=== PATIENT | male | born 1955 | race African-American/Black ===

== ENCOUNTER 2016-10-04 12:00 | Inpatient (IN) | payer MEDICARE ==
[~2016-10-04] VITALS: Ht 185.4 cm; Wt 167.8 kg
--- NOTE | ~2016-10-04 | PN ---
Unit #: [id number] #: [id number] Patient: BHARAT JESSICA [id number] [facility] [address] [place] [address] [id number] MR#: [id number] NAME: BHARAT JESSICA ROOM: [facility] Age: 61 Sex: M Admission Date: 10/04/2016 : 1955 Attending Physician: Arun Haque M.D. Admitting Physician: Arun Haque M.D. Primary Care Physician: Primary Care Physician Marium COYNE PROGRESS NOTES DATE 10/08/2016 DISCUSSION Bharat Jessica is a 61-year-old male seen on 10/08/2016. Patient interviewed. Chart reviewed. Obtained information from nursing staff. Patient was compliant, cooperative. Mood sad, dysphoric. Vital signs 98.3, 91, 182/103. Patient still feeling sad, depressed, anxious, withdrawn. Patient withdrawing from drugs but still isolative, guarded. Complete review of system unremarkable. MENTAL STATUS EXAMINATION General appearance, patient moderately obese, dressed casually. Attention span, concentration fair. Oriented in time, place and person. Mood and affect sad, dysphoric, flat. Speech monotone. Thought process concrete. Patient reported passive SI, withdrawn, isolative, guarded. Recent and remote memory poor. Insight and judgement poor. DIAGNOSES 1. Mood disorder NOS. 2. Amphetamine use disorder, severe. 3. Alcohol use disorder, severe. ASSESSMENT/PLAN Advised to continue with current medication and therapeutic protocol. If needed, consider further adjustment of medication. Dictated by... Humberto Levi/feliz TD: 10/09/2016 17:54 JOB #: [id number] Unit #: [id number] #: [id number] Patient: BHARAT JESSICA PROGRESS NOTES Page 1 of 1 X Arun Haque MD PROGRESS NOTE
--- NOTE | ~2016-10-04 | PN ---
Unit #: [id number] #: [id number] Patient: BHARAT JESSICA [id number] [facility] [address] [place] [address] [id number] I MR#: [id number] NAME: BHARAT JESSICA ROOM: [facility] Age: 61 Sex: M Admission Date: 10/04/2016 : 1955 Attending Physician: Arun Haque M.D. Admitting Physician: Arun Haque M.D. Primary Care Physician: Primary Care Physician Marium BROWN NOTES DATE OF SERVICE 10/07/2016 DISCUSSION Mr. Bharat Jessica is a 61-year-old male. Patient interviewed, chart reviewed. Obtained information from nursing staff. Patient reported still feeling sad, depressed, withdrawn, isolative, flat affect. Vital signs 98.2, 83, 145/104. Patient still having problems with the anxiety. Patient carries a diagnosis of amphetamine use, alcohol abuse disorder, severe mood disorder NOS. compliant and cooperative. Complete review of systems unremarkable. MENTAL STATUS EXAMINATION General appearance, patient dressed casually. Attention span and concentration fair. Oriented to time, place and person. Mood and affect sad, depressed. Speech monotone. Thought process concrete. Patient denied any suicidal ideation but passive SI. Denied any psychotic symptom but withdrawn, isolative. Recent and remote memory poor. Insight and judgement poor. DIAGNOSES 1. Amphetamine use disorder moderate. 2. Alcohol use disorder moderate. 3. Mood disorder NOS. ASSESSMENT/PLAN Advise to continue with current medication and therapeutic protocol. If needed consider further adjustment of medication. Dictated by... Humberto Levi/makenzie TD: 10/09/2016 04:11 JOB #: [id number] Unit #: [id number] #: [id number] Patient: BHARAT JESSICA PROGRESS NOTES Page 1 of 1 X Arun Haque MD X PROGRESS NOTE
--- NOTE | ~2016-10-04 | PN ---
Unit #: [id number] #: [id number] Patient: STEVEN MILLIGAN [id number] [facility] [address] [place] [address] [id number] MR#: [id number] NAME: STEVEN MILLIGAN ROOM: [facility] Age: 61 Sex: M Admission Date: 10/04/2016 : 1955 Attending Physician: Arun Haque M.D. Admitting Physician: Arun Haque M.D. Primary Care Physician: Primary Care Physician Marium COYNE PROGRESS NOTES DATE 10/05/2016 DISCUSSION Patient interviewed. Chart reviewed. Obtained information from nursing staff. Patient was compliant, cooperative. Mood sad, dysphoric, withdrawn, isolative, flat affect, guarded, paranoid, depressed, seclusive. Complete review of system unremarkable. MENTAL STATUS EXAMINATION Patient dressed casually. Attention span, concentration fair. Oriented in time, place and person. Mood and affect sad, depressed. Speech monotone. Thought process concrete. Patient reported feeling sad, depressed, hopeless, worthless, guarded, paranoid, seclusive. Recent and remote memory poor. Insight and judgement poor. DIAGNOSES 1. Amphetamine use disorder, severe. 2. Alcohol use disorder, severe. 3. Mood disorder NOS. ASSESSMENT/PLAN Advised to continue with current medication and therapeutic protocol. If needed, consider further adjustment of medication. Dictated by... Arun Haque M.D. ARIELLE/feliz TD: 10/05/2016 18:52 JOB #: [id number] Unit #: [id number] #: [id number] Patient: STEVEN MILLIGAN PROGRESS NOTES Page 1 of 1 X Arun Haque MD X PROGRESS NOTE
--- NOTE | ~2016-10-04 | PA ---
Unit #: [id number] #: [id number] Patient: BHARAT MILLIGAN [id number] [facility] [address] [place] [address] [id number] MR#: [id number] NAME: BHARAT MILLIGAN ROOM: P210 Age: 61 Sex: M Admission Date: 10/04/2016 : 1955 Date of Assessment: Attending Physician: Arun Haque M.D. Admitting Physician: Arun Haque M.D. PSYCHIATRIC ASSESSMENT INFORMANTS The patient reliability, fair informant and chart reliability, good. CHIEF COMPLAINT Detox from alcohol, depression, and suicidal ideation. HISTORY OF PRESENT ILLNESS Mr. Bharat Milligan is a 61-year-old male, presented with the above-mentioned complaint. The patient reported substance abuse, depression, and increased irritability. The patient reports history of psychosis, but denied any current auditory or visual hallucination. The patient reported substance abuse; using meth, amphetamine, and alcohol. Currently, reported withdrawal symptom. Family reported that he uses actually more alcohol than reported. The patient feeling sad and depressed; feeling hopeless and worthless; suicidal ideation, denied any plan; denied any homicidal ideation. The patient reported alcohol use, age of onset 17 and amphetamine, age of onset 58. The patient reported longest period of sobriety 3 weeks, last period of sobriety in 2016. The patient reports that he uses alcohol often, typically a bottle. The patient reports history of blackout, but no history of HIV, hepatitis, withdrawal symptoms, or IV drug use. The patient reported feeling sad and depressed. Needing inpatient admission at this time for psychiatric stabilization. PAST PSYCHIATRIC HISTORY Remarkable for history of previous treatment inpatient at [facility] in 2015, details unknown at this time. FAMILY HISTORY AND SOCIAL HISTORY The patient lives at home with daughter and grand kids. No history of abuse. Family psychiatric illness is unknown for any history of any psychiatric illness in the family. MEDICAL HISTORY Remarkable for history of hypertension, chronic back pain, knee issues, knee injuries, and obesity. Musculoskeletal; muscle strength and tone, no atrophy or abnormal movement. Gait normal. MEDICATION HISTORY The patient is currently on no medication. ALLERGIES No known drug allergies. Unit #: [id number] #: [id number] Patient: BHARAT MILLIGAN SUBSTANCE ABUSE HISTORY Please see above. REVIEW OF SYSTEMS HEENT: Eyes, clear. Ears, nose, mouth, and throat; clear. CARDIOVASCULAR: Unremarkable. RESPIRATORY: Unremarkable. GI: Unremarkable. : Unremarkable. SKIN: Unremarkable. LYMPH NODE: Unremarkable. NEUROLOGIC: Unremarkable. ENDOCRINE: Unremarkable. HEMATOLOGIC: Unremarkable. ALLERGIC/IMMUNOLOGIC: Unremarkable. MUSCULOSKELETAL: Muscle strength and tone, no atrophy or abnormal movement. Gait normal. MENTAL STATUS EXAMINATION CONSTITUTIONAL: Measurement of vital signs; temperature 97.9, heart rate 106, respiratory rate 17, and blood pressure 153/107. Height 6 feet 1 inch and weight 370 pounds. GENERAL APPEARANCE: The patient dressed casually. The patient morbidly obese. No facial deformity. MUSCULOSKELETAL: Please see above. PSYCHIATRIC EXAMINATION Description of speech; regular rate, normal volume, normal articulation, and coherent. Description of thought process, goal directed. Description of association, intact. Description of abnormal psychotic thinking; the patient denied any auditory or visual hallucination, but paranoia, depression, suicidal ideation, and substance abuse. Description of the patient's judgment: Concerning everyday activity, poor. Social situation, poor. Concerning psychiatric condition, poor. Complete mental status examination; oriented in time, place, and person. Recent and remote memory, fair. Attention span and concentration, fair. Language, able to name object and repeat phrases. Fund of knowledge, aware of current event and passive vocabulary intact. Mood and affect, sad and dysphoric. Insight and judgment, fair to poor. ASSETS AND LIABILITIES Assets, the patient is articulate and able to take care of his ADL. Liability, history of depression and substance abuse. ADMITTING DIAGNOSES Psychiatric: Amphetamine use disorder, severe, F15.20; alcohol use disorder, severe, F10.20; and major depressive disorder, recurrent, severe, F33.2. Secondary diagnosis: Deferred. Medical diagnoses: Hypertension, chronic back pain, knee problems, and morbid obesity. Stressors: Psychosocial stressors. PSYCHIATRIC PLAN AND TREATMENT GOAL AND DISCHARGE PLAN Unit #: [id number] #: [id number] Patient: BHARAT MILLIGAN 1. Advised to admit the patient on the inpatient unit. Provide safe, supportive, and structured environment. 2. Ordered labs; CBC, CMP, UA, and UDS. 3. Detox protocol and detox monitoring. 4. Celexa 20 mg daily and Desyrel 50 mg at bedtime. The patient to attend all the programing, group therapy, individual therapy, and chemical dependency group. If needed, consider medication for psychosis. Treatment goal to attain euthymic mood, gain insight into his problem, and learn coping skills. DISCHARGE PLAN Plan to stabilize the patient and consider followup in outpatient program. ESTIMATED LENGTH OF STAY 2 weeks. Dictated by... Arun Haque M.D. ARIELLE/roxy TD: 10/05/2016 17:37 JOB #: [id number] PSYCHIATRIC ASSESSMENT Page 1 of 1 X Arun Haque MD X PSYCHIATRIC ASSESSMENT
--- NOTE | ~2016-10-04 | HP ---
Unit #: [id number] #: [id number] Patient: STEVEN MILLIGAN [id number] [place] [address] [id number] I MR#: [id number] NAME: STEVEN MILLIGAN [place] [facility] [place] Age: 61 Sex: M Admission Date: 10/04/2016 : 1955 Attending Physician: Arun Haque M.D. Admitting Physician: Arun Haque M.D. Primary Care Physician: Primary Care Physician No HISTORY AND PHYSICAL HISTORY OF PRESENT ILLNESS The patient is a 61-year-old male, admitted to [address] [place] [address] on 10/04/2016 for methamphetamine use and suicidal ideation. PAST MEDICAL HISTORY 1. Obesity. 2. Low back pain. 3. Knee pain. 4. Hypertension. PAST SURGICAL HISTORY The patient denies. SOCIAL HISTORY He drinks about a pint of alcohol per week, he uses methamphetamine occasionally. He is disabled and he lives alone. FAMILY MEDICAL HISTORY Noncontributory. ALLERGIES Penicillin. CURRENT MEDICATIONS The patient is not on any home medications. REVIEW OF SYSTEMS CONSTITUTIONAL: No fever or chills. HEENT: Denies any sore throat, ear pain or runny nose. CARDIOVASCULAR: Denies chest pain, irregular heart rhythm or palpitations. CHEST: Denies shortness of breath or cough. No hemoptysis. GASTROINTESTINAL: Denies nausea, vomiting, diarrhea or chronic constipation. ENDOCRINE: Denies history of increased thirst or urination. No recent significant weight loss or gain. GENITOURINARY: Denies dysuria, frequency, or hematuria. SKIN: Denies any rashes. HEMATOLOGIC: Denies history of increased bleeding or bruising. MUSCULOSKELETAL: Denies any hot, swollen joints. No generalized muscle pain. He complains of back and bilateral knee pain. NEUROLOGIC: Denies problems with vision or speech. No frequent, severe headaches. No numbness, tingling or weakness in any extremities. Denies loss of bladder or bowel control. Unit #: [id number] #: [id number] Patient: STEVEN MILLIGAN PHYSICAL EXAMINATION GENERAL: Awake, alert, oriented, and in no acute distress. VITAL SIGNS: Temperature 97.9, heart rate 106, respirations 20, and blood pressure 153/107. HEIGHT: 5 feet 1 inch. WEIGHT: 370 pounds. SKIN: Warm and dry without rash or lesion. HEENT: Normocephalic. TMs not viewed. Oral and nasal passages clear. Conjunctivae clear. PERRLA. EOMs intact. NECK: Supple without lymphadenopathy or thyromegaly. HEART: Regular rate and rhythm without murmur. LUNGS: Clear. ABDOMEN: Soft, nontender. : Not done. EXTREMITIES: No evidence of cyanosis, clubbing or edema. Moves all without focal deficit. NEUROLOGICAL: Grossly within normal limits. Cranial Nerves: II: Visual gooden are intact. III, IV AND : Extraocular movements are intact. Pupils are equal, round and reactive to light. V: Facial sensation is grossly normal. VII: Facial movements and expression are normal. VIII: Auditory acuity grossly intact. IX, X: Uvula is midline. Phonation is normal. XI: Patient shrugs shoulders and turns head normally. XII: Tongue protrudes in the midline. Sensory and Motor Function: Sensory and motor sensation is grossly normal. Motor: moves all extremities well. Coordination: Gait is normal. Deep Tendon Reflexes: Intact. IMPRESSION 1. Psychiatric admission. 2. Obesity. 3. Low back pain. 4. Knee pain. 5. Hypertension. RECOMMENDATIONS Psychiatric, per psychiatrist. MEDICAL No contraindications to participating in facility's activities. MEDICAL PROGNOSIS Good. MEDICAL CONDITION Stable. Dictated by... Mercy Hameed/trent TD: 10/05/2016 09:52 JOB #: [id number] Unit #: [id number] #: [id number] Patient: STEVEN MILLIGAN HISTORY AND PHYSICAL Page 1 of 1 X SUMIT PEREZ APRN HISTORY AND PHYSICAL
--- NOTE | ~2016-10-04 | PN ---
Unit #: [id number] #: [id number] Patient: BHARAT JESSICA [id number] [facility] [address] [place] [address] [id number] I MR#: [id number] NAME: BHARAT JESSICA [place]OM: [facility] [place] Age: 61 Sex: M Admission Date: 10/04/2016 : 1955 Attending Physician: Arun Haque M.D. Admitting Physician: Arun Haque M.D. Primary Care Physician: Primary Care Physician Marium BORWN NOTES DATE OF SERVICE 10/09/2016 DISCUSSION Mr. Bharat Jessica is a 61-year-old male seen on 10/09/2016. Patient interviewed, chart reviewed, I obtained information from nursing staff. Patient was compliant, cooperative. Mood sad, dysphoric, flat affect. Patient denied any side effect from medication, but withdrawn, isolative, guarded. COMPLETE REVIEW OF SYSTEMS Unremarkable. MENTAL STATUS EXAMINATION GENERAL APPEARANCE: Patient dressed casually, moderately obese. ATTENTION SPAN AND CONCENTRATION: Fair. Oriented in time, place and person. MOOD AND AFFECT: Sad, dysphoric. SPEECH: Monotone. THOUGHT PROCESS: [place]. Patient denied any thoughts of harming self or others, but somewhat guarded. RECENT AND REMOTE MEMORY: Poor. INSIGHT AND JUDGMENT: Poor. DIAGNOSES Amphetamine use disorder, severe Mood disorder, NOS ASSESSMENT/PLAN Advised to continue with current medication and therapeutic protocol. If needed, consider further adjustment in medication. Dictated by... Humberto Levi/lulu TD: 10/10/2016 21:27 JOB #: [id number] Unit #: [id number] #: [id number] Patient: BHARAT JESSICA PROGRESS NOTES Page 1 of 1 X Arun Haque MD X PROGRESS NOTE
--- NOTE | ~2016-10-04 | PN ---
Unit #: [id number] #: [id number] Patient: STEVEN MILLIGAN [id number] [facility] [address] [place] [address] [id number] MR#: [id number] NAME: STEVEN MILLIGAN ROOM: P210 Age: 61 Sex: M Admission Date: 10/04/2016 : 1955 Attending Physician: Arun Haque M.D. Admitting Physician: Arun Haque M.D. Primary Care Physician: Primary Care Physician No [facility] PROGRESS NOTES DATE OF SERVICE 10/10/2016 DISCUSSION Mr. Nicholson is a 61-year-old male. Patient interviewed, chart reviewed, I obtained information from nursing staff. Patient continues to be isolative, flat affect, sad, dysphoric mood. Patient denied any suicidal or homicidal ideation but still feeling sad, depressed, withdrawn, isolative. Maintained positive interaction with peer and staff. Vital signs: 98.4, 125, 135/92 COMPLETE REVIEW OF SYSTEMS Unremarkable. MENTAL STATUS EXAMINATION GENERAL APPEARANCE: Patient dressed casually, morbidly obese. ATTENTION SPAN AND CONCENTRATION: Poor. Oriented in place and person. MOOD AND AFFECT: Sad, depressed. SPEECH: Monotone. THOUGHT PROCESS: [place]. Patient denied any suicidal or homicidal ideation, but sad, depressed, withdrawn, isolative, seclusive. RECENT AND REMOTE MEMORY: Poor. INSIGHT AND JUDGMENT: Poor. DIAGNOSIS Major depressive disorder, recurrent, severe Amphetamine use disorder, severe ASSESSMENT/PLAN Advised to continue with current medication and therapeutic protocol. If needed, consider further adjustment of medication. Dictated by... Humberto Levi/lulu TD: 10/11/2016 03:49 Unit #: [id number] #: [id number] Patient: STEVEN MILLIGAN JOB #: [id number] [facility] PROGRESS NOTES Page 1 of 1 X Arun Haque MD PROGRESS NOTE
--- NOTE | ~2016-10-04 | DS ---
Unit #: [id number] #: [id number] Patient: STEVEN MILLIGAN [id number] [place] [address] [id number] I MR#: [id number] NAME: STEVEN MILLIGAN ROOM: [facility] Age: 61 Sex: M Admission Date: 10/04/2016 : 1955 Discharge Date: 10/11/2016 Attending Physician: Arun Haque M.D. Primary Care Physician: Primary Care Physician No DISCHARGE SUMMARY REASON FOR ADMISSION Depression, detox. DIAGNOSTIC STUDIES Laboratory data, Urine drug screen positive for amphetamines. HOSPITAL COURSE The patient was admitted to the inpatient unit, on October 04 and discharged on October 11, 2016. The patient was treated on the inpatient unit with group therapy, individual therapy, medication management, structured milieu, chemical dependency group. The patient was compliant and showed improvement, responsive to treatment. Subsequently the patient was discharged with the plan to follow up in outpatient program. DISCHARGE DIAGNOSES Trent I Amphetamine use disorder, severe, F15.20. Alcohol use disorder, severe, F10.20. Major depressive disorder, recurrent, severe, F33.2. Trent II Deferred. Trent III Hypertension. Chronic back pain. Knee problem. Morbid obesity. Trent IV Psychosocial stressor. Trent V INSTRUCTIONS TO PATIENT The patient is to followup in outpatient clinic as well as social media coordinator. DISCHARGE MEDICATIONS 1. Desyrel 50 mg at bedtime for depression 2. Celexa 20 mg daily for depression CONDITION AT DISCHARGE Pleasant and cooperative, denied any psychotic symptoms or any suicidal ideation. PROGNOSIS Guarded. DIET AND ACTIVITY As tolerated. Unit #: [id number] #: [id number] Patient: STEVEN MILLIGAN Dictated by... Humberto Levi/trent TD: 10/12/2016 05:42 JOB #: [id number] DISCHARGE SUMMARY Page 1 of 1 X Arun Haque MD X DISCHARGE SUMMARY
--- NOTE | ~2016-10-04 | PN ---
Unit #: [id number] #: [id number] Patient: BHARAT JESSICA [id number] [facility] [address] [place] [address] [id number] MR#: [id number] NAME: BHARAT JESSICA ROOM: [facility] Age: 61 Sex: M Admission Date: 10/04/2016 : 1955 Attending Physician: Arun Haque M.D. Admitting Physician: Arun Haque M.D. Primary Care Physician: Primary Care Physician Marium COYNE PROGRESS NOTES DATE OF SERVICE 10/06/2016 DISCUSSION Mr. Bharat Jessica is a 61-year-old male seen on 10/06/2016. The patient reported making progress. Vital signs 98.4, 84. Still sad, depressed, withdrawn, isolative, flat affect. Patient currently detoxing as well as reporting symptoms of depression. Patient complete review of systems unremarkable. MENTAL STATUS EXAMINATION General appearance, patient dressed in hospital attire, morbidly obese. Attention span and concentration fair. Oriented to place and person. Mood and affect sad, dysphoric, flat. Speech monotone. Thought process concrete. The patient denied any thoughts of harming self or others but sad, depressed, withdrawn, flat, sad, dysphoric mood. Recent and remote memory poor. Insight and judgement poor. DIAGNOSES 1. Amphetamine use disorder severe. 2. Alcohol use disorder severe. 3. Mood disorder NOS. ASSESSMENT/PLAN Advise to continue with current medication and therapeutic protocol. If needed consider further adjustment of medication. The patient was started on Celexa. No side effects from medication. Dictated by... Humberto Levi/makenzie TD: 10/08/2016 01:43 JOB #: [id number] Unit #: [id number] #: [id number] Patient: BHARAT JESSICA PROGRESS NOTES Page 1 of 1 X Arun Haque MD PROGRESS NOTE
[2016-10-05 09:37] LABS: BASOPHIL% 0.8 % (0-2.5); EOSINOPHIL# 0.4 X10e3 (0-0.7); EOSINOPHIL% 8.2 % (0.0-7.0); HEMATOCRIT 46.9 % (38.0-50.0); LYMPHOCYTE# 1.9 X10e3 (1.0-3.5); LYMPHOCYTE% 44.2 % (17.0-45.0); MEAN CELL VOLUME 82.2 FL (83-96); MEAN CORPUSCULAR HEMOGLOBIN 26.3 PG (28-34); MEAN PLATELET VOLUME 9.3 FL (6.5-11.5); MONOCYTE# 0.4 X10e3 (0-1.0); MONOCYTE% 8.6 % (3.0-12.0); NEUTROPHIL# 1.7 X10e3 (1.5-7.1); NEUTROPHIL% 38.2 % (40-75); PLATELET COUNT 208 X10e3 (140-420); RED BLOOD COUNT 5.71 X10e (3.90-5.60); RED CELL DISTRIBUTION WIDTH 14.7 % (11.0-15.5); WHITE BLOOD COUNT 4.3 X10e3 (4.0-10.5)
[2016-10-05 09:42] LABS: DIFF IND NO
[2016-10-05 09:50] LABS: ALBUMIN SERUM 3.7 g/dL (3.5-5.0); BILIRUBIN,TOTAL 0.5 mg/dL (0.2-2.0); CALCIUM SERUM 9.1 mg/dL (8.4-10.2); CREATININE SERUM 1.1 mg/dL (0.6-1.4); POTASSIUM 4.5 mmol/L (3.5-5.1)
[2016-10-06 11:45] LABS: URINE APPEARANCE CLEAR; URINE BILIRUBIN NEG (NEG); URINE BLOOD NEG (NEG); URINE COLOR YELLOW; URINE GLUCOSE NEG (NEG); URINE KETONE NEG (NEG); URINE LEUKOCYTE ESTERASE NEG (NEG); URINE NITRATE NEG (NEG); URINE PH 6.5 (5-8); URINE PROTEIN NEG (NEG); URINE SPECIFIC GRAVITY 1.013 (1.003-1.035); URINE UROBILINOGEN 0.2 MG/DL (NEG)
[2016-10-06 12:38] LABS: AMPHETAMINE POS (NEG); BARBITURATES NEG (NEG); BENZODIAZEPINES NEG (NEG); COCAINE NEG (NEG); MARIJUANA NEG (NEG); OPIATES NEG (NEG); TRICYCLIC ANTIDEPRESSANTS NEG (NEG); U METHADONE NEG (NEG)
== END 2016-10-11 12:15 | disposition home or self-care (01) | DRG 885 ==
LOC: P2S 15:30
PROVIDERS: Psychiatry & Neurology Psychiatry
PROC: HZ2ZZZZ Detoxification Services for Substance Abuse Treatment (ICD-10-PCS; principal; 2016-10-04)
DX: F33.2 Major depressive disorder, recurrent severe without psychotic features (principal); F15.20 Other stimulant dependence, uncomplicated; I10 Essential (primary) hypertension; F10.20 Alcohol dependence, uncomplicated; E66.9 Obesity, unspecified; M54.9 Dorsalgia, unspecified
CPT/HCPCS: 80053; 80307; 81003; 85025